=== PATIENT | female | born 1955 | race Caucasian/White ===

== ENCOUNTER → 2022-05-06 | Day surgery (SDC) | payer MEDICARE ==
[~2022-05-06] MED LIST: BENADRYL PO; CLARITIN10 MG PO; CRESTOR10 MG PO; LEVALBUTEROL TA15 GM INH; MIRTAZAPINE7.5 MG PO; MULTI-VITAMIN1 EACH PO; OR PHACO EYE KIT ONE; PREOP PHACO EYE KIT ONE; SYNTHROID75 MCG PO; VENLAFAXINE HCL75 MG PO; VITAMIN B COMPLEX SL
[2022-05-06 12:30] VITALS: BP 131/77
== END | disposition home or self-care (01) ==
LOC: OR 09:11
PROVIDERS: ATTEND Ophthalmology
DX: H25.12 Age-related nuclear cataract, left eye (principal); E03.9 Hypothyroidism, unspecified; H91.93 Unspecified hearing loss, bilateral; J45.909 Unspecified asthma, uncomplicated; E78.5 Hyperlipidemia, unspecified; F32.A Depression, unspecified; Z01.812 Encounter for preprocedural laboratory examination; Z20.822 Contact with and (suspected) exposure to COVID-19; Z79.899 Other long term (current) drug therapy
CPT/HCPCS: 0223U; 36415; 66984; V2788

== ENCOUNTER → 2022-05-20 | Day surgery (SDC) | payer MEDICARE ==
[~2022-05-20] MED LIST changes: +FENTANYL CITRATE/PF 100MCG/2 ML INJ ONE; +MIDAZOLAM HCL 2 MG/2 ML VIAL ONE; +VITAMIN D PO
[2022-05-20 12:05] VITALS: BP 144/82
== END | disposition home or self-care (01) ==
LOC: OR 09:01
PROVIDERS: ATTEND Ophthalmology
DX: H25.11 Age-related nuclear cataract, right eye (principal); E03.9 Hypothyroidism, unspecified; J45.909 Unspecified asthma, uncomplicated; E78.5 Hyperlipidemia, unspecified; F32.A Depression, unspecified; F41.9 Anxiety disorder, unspecified; Z79.899 Other long term (current) drug therapy
CPT/HCPCS: 66984; J2250; J3010; V2632